=== PATIENT | male | born 1985 | race Caucasian/White ===

== ENCOUNTER 2018-11-10 07:23 | Observation (INO) | payer OTHER, MEDICAID ==
[~2018-11-10] VITALS: Ht 185.4 cm; Wt 131.5 kg
[~2018-11-10 07:23] MED LIST: METO-333 PO
[2018-11-10] MEDS ORDERED: fentaNYL INJECTION 100 MCG/2 ML AMP IVP ONE ×2 (07:45→08:45)
[2018-11-10] MEDS ORDERED: LACTATED RINGERS 1,000 ML IV ONE (07:45)
[2018-11-10] MEDS ORDERED: NS IV 1000 ML 1,000 ML ONE (07:48)
[2018-11-10] MEDS ORDERED: NS IV 1000 ML 1,000 ML IV SCH (07:51)
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
[2018-11-10 07:55] LABS: HEMOGLOBIN 15.6 G/DL (13.3-17.7); MEAN PLATELET VOLUME 11.7 FL (7.4-10.4); RED CELL DISTRIBUTION WIDTH 14.5 % (10.0-14.5); WHITE BLOOD COUNT 16.8 10^3/uL (4.3-11.0)
[2018-11-10] MEDS ORDERED: TETANUS,DIPTH,PERTUSS P/F (BOOSTRIX) 0.5 ML VIAL IM ONE (08:00)
[2018-11-10 08:09] LABS: ALBUMIN 4.6 GM/DL (3.2-4.5); BILIRUBIN,DIRECT 0.2 MG/DL (0.0-0.3); BILIRUBIN,INDIRECT 0.3 MG/DL; BILIRUBIN,TOTAL 0.5 MG/DL (0.1-1.0); CALCIUM 9.6 MG/DL (8.5-10.1); CREATININE SERUM 1.47 MG/DL (0.60-1.30); POTASSIUM 4.3 MMOL/L (3.6-5.0); TOTAL PROTEIN 7.3 GM/DL (6.4-8.2)
[2018-11-10] MEDS ORDERED: ceFAZolin 2 GM/50 ML NS 50 ML IV ONE (08:45)
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
[2018-11-10 09:37] LABS: BILIRUBIN,URINE NEGATIVE (NEGATIVE); CLARITY,URINE SLIGHTLY CLOUDY; COLOR,URINE YELLOW; GLUCOSE, URINE (UA) NEGATIVE (NEGATIVE); KETONES,URINE 2+ (NEGATIVE); LEUKOCYTE ESTERASE ,URINE NEGATIVE (NEGATIVE); NITRITE,URINE NEGATIVE (NEGATIVE); PH,URINE 5 (5-9); PROTEIN,URINE 3+ (NEGATIVE); UROBILINOGEN,URINE NORMAL (NORMAL)
[2018-11-10 09:53] LABS: BACTERIA,URINE TRACE /HPF; RBC,URINE 0-2 /HPF; SQUAMOUS EPITHELIAL CELL,UR 0-2 /HPF
[2018-11-10 10:00] LABS: AMPHETAMINE SCREEN, URINE NEGATIVE (NEGATIVE); BARBITURATE SCREEN URINE NEGATIVE (NEGATIVE); BENZODIAZEPINES SCREEN URINE NEGATIVE (NEGATIVE); CANNABINOID SCREEN, URINE NEGATIVE (NEGATIVE); COCAINE SCREEN URINE NEGATIVE (NEGATIVE); METHADONE STAT NEGATIVE (NEGATIVE); METHAMPHETAMINE SCREEN URINE S NEGATIVE (NEGATIVE); OPIATE SCREEN URINE NEGATIVE (NEGATIVE); OXYCODONE STAT NEGATIVE (NEGATIVE); PROPOXYPHENE STAT NEGATIVE (NEGATIVE); TRICYCLIC ANTIDEPRESSANTS SCRE NEGATIVE (NEGATIVE)
[2018-11-10] MEDS ORDERED: LIDOCAINE 1% INJ 20 ML 20 ML VIAL ONE (10:01)
[2018-11-10] MEDS ORDERED: LIDOCAINE 1% INJ 20 ML 20 ML VIAL INJ ONE (10:15)
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
[2018-11-10] MEDS ORDERED: KETOROLAC 15 MG/ML VIAL IVP PRN (13:15)
[2018-11-10] MEDS: HYDROcodone/APAP 10 MG/325 MG (LORTAB) TAB PO PRN ×2 (13:15→20:19)
[2018-11-10] MEDS ORDERED: ONDANSETRON 4 MG/2 ML (SDV) Z0FRAN IVP PRN (13:15)
[2018-11-10] MEDS: fentaNYL INJECTION 100 MCG/2 ML AMP IVP PRN ×2 (13:15→16:19)
[2018-11-10] MEDS ORDERED: ACETAMINOPHEN 325 MG TABLET PO PRN (13:15)
[2018-11-10] MEDS ORDERED: ANTACID SUSP 30 ML UDC (MYLANTA) PO PRN (13:15)
[2018-11-10 13:17] VITALS: BP 127/65
[2018-11-10 13:26] VITALS: BP 127/65
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
[2018-11-10 16:00] VITALS: BP 131/70
[2018-11-10] MEDS: TRIM/SULFAMETH 160/800 (SEPTRA DS) TAB PO SCH (17:22)
[2018-11-10 19:36] VITALS: BP 138/82
[2018-11-10] MEDS ORDERED: FLUoxetine HCL 20 MG (PROzac) CAP PO SCH (21:00)
[2018-11-10] MEDS ORDERED: GABAPENTIN 600 MG (NEURONTIN) TAB PO SCH (21:00)
[2018-11-10 23:54] VITALS: BP 163/70
[2018-11-11 03:43] VITALS: BP 144/84
[2018-11-11] MEDS: HYDROcodone/APAP 10 MG/325 MG (LORTAB) TAB PO PRN (03:53)
[2018-11-11 06:14] LABS: BASOPHILS % (AUTO) 0 % (0-10); EOSINOPHILS % (AUTO) 0 % (0-10); HEMATOCRIT 39 % (40-54); HEMOGLOBIN 13.8 G/DL (13.3-17.7); LYMPHOCYTES # (AUTO) 1.7 X 10^3 (1.0-4.0); LYMPHOCYTES % (AUTO) 17 % (12-44); MEAN CORPUSCULAR HEMOGLOBIN 32 PG (25-34); MEAN CORPUSCULAR HGB CONC 35 G/DL (32-36); MEAN CORPUSCULAR VOLUME 91 FL (80-99); MEAN PLATELET VOLUME 11.9 FL (7.4-10.4); MONOCYTES # (AUTO) 0.8 X 10^3 (0.0-1.0); MONOCYTES % (AUTO) 8 % (0-12); NEUTROPHILS # (AUTO) 7.7 X 10^3 (1.8-7.8); NEUTROPHILS % (AUTO) 75 % (42-75); PLATELET COUNT 182 10^3/uL (130-400); RED CELL DISTRIBUTION WIDTH 14.1 % (10.0-14.5); WHITE BLOOD COUNT 10.2 10^3/uL (4.3-11.0)
[2018-11-11] MEDS: TRIM/SULFAMETH 160/800 (SEPTRA DS) TAB PO SCH (06:19)
[2018-11-11 06:33] LABS: BUN/CREATININE RATIO 10; CALCIUM 8.9 MG/DL (8.5-10.1); CARBON DIOXIDE 24 MMOL/L (21-32); CHLORIDE 102 MMOL/L (98-107); CREATININE SERUM 1.07 MG/DL (0.60-1.30); GFR ESTIMATED > 60; GLUCOSE 107 MG/DL (70-105); POTASSIUM 3.6 MMOL/L (3.6-5.0); SODIUM 137 MMOL/L (135-145)
[2018-11-11 08:13] VITALS: BP 144/76
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
[2018-11-11] MEDS ORDERED: DOXY25TA50 PO (09:36)
[2018-11-11] MEDS ORDERED: OMEP20TA7 PO (09:36)
--- NOTE | 2018-11-11 10:17 | NUR ---
SPOKE WITH THE PATIENT ABOUT HIS MEDICATIONS. HE LISTED WHAT HE IS TAKING AND STATES HE GETS THEM FILLED AT [facility] OR [facility] IN [place]. HE STATES HE TAKES GABAPENTIN 600MG HS AND FLUOXETINE 20MG HS HOWEVER I CAN NOT FIND WHERE THEY HAVE BEEN FILLED. I CALLED [facility] IN [place] THAT PRESCRIBED THE SHORT TERM MEDS HE HAS FILLED RECENTLY AND THEY STATE THEY HAVE NO RECORD OF PRESCRIBED THE TWO PRESCRIPTION MEDS HE REPORTED. THEY DO NOT HAVE ACCESS TO THE PRESCRIBING RECORDS FROM [facility] BUT HE HAS NOT HAD THEM ORDERED SINCE JUL WHEN THEY TOOK OVER THAT PRACTICE. I DID NOT INCLUDE THEM ON THE MED REC AT THIS TIME SINCE I CAN NOT FIND WHERE THEY HAVE BEEN FILLED. [facility] FILLED TWO SHORT TERM MEDICATIONS IN AUGUST FOR THE PATIENT BUT NOT THE GABAPENTIN AND FLUOXETINE HE REPORTED. [facility] FILLED FLEXERIL AND METHYLPREDNISOLONE IN OCTOBER BUT NEVER THE GABAPENTIN OR FLUOXETINE. HE STATES HE IS TAKING SLEEP AID AND OMEPRAZOLE HS OTC.
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
[2018-11-11] MEDS ORDERED: KETO10TA PO (10:35)
--- NOTE | 2018-11-11 10:37 | Discharge Inst-Surgical ---
Discharge Inst-Surgical Depart Medication/Instructions New, Converted or Re-Newed RX: RX Given to Pt/Family Patient Instructions Follow up Appt: Make appointment with Orthopedic surgery once released from [facility]. Instructions: May shower in 24 hours, no tub bath or soaking. Use incentive spirometer at home as directed. No Smoking Skin/Wound Care: May remove bandages in am. Keep sutures and lacerations clean and dry. Symptoms to Report: Appetite Changes, Extremity Discoloration, Numbness/Tingling, Swelling Increased, Bleeding Excessive, Eyesight Changes, Pain Increased, Urine Color Change, Constipation(Persistent), Fever over 101 degree F, Pain/Pressure in chest, Urinating Difficulty, Cough Up/Vomit Blood, Heart Beat Irreg/Pounding, Pain/Pressure in jaw, Cramps in feet or legs, Lightheadedness, Pain/Pressure in shoulder, Diarrhea(Persistent), Memory Changes Suddenly, Questions/Concerns, Weight gain consecutive days, Dizziness/Fainting, Nausea/Vomiting, Shortness of Breath, Weight gain over 2 pounds If questions or concerns contact your physician Or seek help at emergency department. Activity Activity as Tolerated: Yes Driving Instructions: No Driving/Refer to Dr. Gtz Discharge Diet: No Restrictions Diet After 24 Hours: Clear Liquid if Nauseous If Any Problems/Questions/Issu: Contact Your Physician, Go to Emergency Room Skin/Wound Care Infection Signs and Symptoms: Increased Redness, Foul Odor of Wound, Increased Drainage, Skin Itchy or Has a Rash, Increased Swelling, Temperature Above 101 F Wound Care Comment: Use air cast for right ankle Bathing Instructions: Shower Stitches/Faraz/Dermabond Dis: Care of Stitches DENIS DODGE DO November 11, 2018 10:37
== END 2018-11-11 10:35 ==
LOC: EDUNIT# 07:23 → ER 07:25 → UNDOADMOB 11:10 → 4TH 11:10 → UNDODISOB 11-11 11:00
PROVIDERS: ADMIT Surgery; ATTEND Surgery
DX: S27.321A Contusion of lung, unilateral, initial encounter (principal); S22.42XA Multiple fractures of ribs, left side, initial encounter for closed fracture; S36.522A Contusion of descending [left] colon, initial encounter; S01.21XA Laceration without foreign body of nose, initial encounter; S41.012A Laceration without foreign body of left shoulder, initial encounter; S81.011A Laceration without foreign body, right knee, initial encounter; S93.401A Sprain of unspecified ligament of right ankle, initial encounter; F31.9 Bipolar disorder, unspecified; V87.7XXA Person injured in collision between other specified motor vehicles (traffic), initial encounter; Z79.899 Other long term (current) drug therapy; Z87.891 Personal history of nicotine dependence
CPT/HCPCS: 12002; 12013; 12034; 36415; 70450; 71045; 71260; 72125; 72170; 73030; 73590; 73610; 74022; 74177; 80048; 80076; 80306; 80320; 81000; 85025; 85027; 86850; 86900; 86901; 90471; 90715; 93005; 93041; 96361; 96365; 96375; 96376; G0378

== ENCOUNTER 2019-08-15 19:59 | Outpatient (CLI) | payer MEDICAID, OTHER ==
[~2019-08-15 19:59] MED LIST changes: +DOXY25TA50 PO; +KETO10TA PO; +OMEP20TA7 PO
== END 2019-08-16 06:00 | disposition home or self-care (01) ==
LOC: SLEEP 19:59
PROVIDERS: ATTEND Nurse Practitioner
DX: G47.10 Hypersomnia, unspecified (principal); E29.1 Testicular hypofunction; L70.9 Acne, unspecified; F41.9 Anxiety disorder, unspecified; R40.0 Somnolence
CPT/HCPCS: 95810

== ENCOUNTER → 2019-09-09 | Outpatient (CLI) | payer MEDICAID, OTHER | LOC: LAB FS 09:17 | PROVIDERS: ATTEND Urology | DX: E29.1 Testicular hypofunction (principal); N52.9 Male erectile dysfunction, unspecified | CPT/HCPCS: 36415; 84402; 84403 ==

== ENCOUNTER → 2019-11-07 | Outpatient (CLI) | payer OTHER | LOC: LAB FS 10:34 | PROVIDERS: ATTEND Urology | DX: E29.1 Testicular hypofunction (principal) | CPT/HCPCS: 36415; 84402; 84403 ==

== ENCOUNTER → 2020-01-27 | Outpatient (CLI) | payer OTHER ==
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
--- NOTE | 2020-01-27 18:43 | Diagnostic Imaging Report ---
INDICATION: Nausea and constipation EXAM: Abdominal film obtained at 05:24 p.m. There is prominent stool throughout the colon compatible with history of constipation. There is no significant small bowel dilatation. There is a nonspecific calcification in the right lower quadrant which was not present on 11/11/2018. IMPRESSION: Unremarkable bowel gas pattern with no sign of obstruction or ileus. There is prominent stool throughout the colon. Calcification over the right lower quadrant is present which is nonspecific and was not seen on 11/11/2018. Dictated by: Dictated on workstation # [id number]
== END ==
LOC: RAD FS 17:08
PROVIDERS: ATTEND Nurse Practitioner
DX: R11.2 Nausea with vomiting, unspecified (principal); K59.00 Constipation, unspecified; K44.9 Diaphragmatic hernia without obstruction or gangrene; K29.60 Other gastritis without bleeding
CPT/HCPCS: 71046; 74018

== ENCOUNTER 2020-02-19 14:06 | Outpatient (RCR) | payer OTHER ==
[~2020-02-19] VITALS: Ht 182 cm; Wt 115.9 kg
[~2020-02-19 14:06] MED LIST changes: +DOXY50TA9 PO; +FLUO20CA42 PO; +GBPN600T PO
[2020-02-25] MEDS ORDERED: HYDR-4226 PO (10:32)
== END 2020-02-23 11:06 | disposition home or self-care (01) ==
LOC: PREOP 14:06
PROVIDERS: ATTEND Surgery
DX: Z01.818 Encounter for other preprocedural examination (principal)

== ENCOUNTER → 2020-02-23 | Outpatient (CLI) | payer OTHER ==
[~2020-02-23] MED LIST changes: +HYDR-4226 PO
== END ==
LOC: LAB FS 10:06
PROVIDERS: ATTEND Surgery
DX: Z01.818 Encounter for other preprocedural examination (principal); Z01.812 Encounter for preprocedural laboratory examination; K42.9 Umbilical hernia without obstruction or gangrene; Z20.828 Contact with and (suspected) exposure to other viral communicable diseases
CPT/HCPCS: 87635

== ENCOUNTER → 2020-07-12 | Outpatient (CLI) | payer OTHER | LOC: LAB FS 09:52 | PROVIDERS: ATTEND Urology | DX: E29.1 Testicular hypofunction (principal) | CPT/HCPCS: 36415; 84403 ==

== ENCOUNTER 2020-11-06 10:02 | Emergency (ER) | payer OTHER ==
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
[2020-11-06] MEDS ORDERED: IBUP-1780 PO (12:02)
[2020-11-06] MEDS ORDERED: BACL10TA PO (12:02)
[2020-11-06 12:11] VITALS: BP 132/69
== END 2020-11-06 12:11 | disposition home or self-care (01) ==
LOC: EDUNIT# 10:02 → ER FS 10:04
DX: S92.151A Displaced avulsion fracture (chip fracture) of right talus, initial encounter for closed fracture (principal); S39.012A Strain of muscle, fascia and tendon of lower back, initial encounter; I10 Essential (primary) hypertension; K21.9 Gastro-esophageal reflux disease without esophagitis; F41.9 Anxiety disorder, unspecified; G47.30 Sleep apnea, unspecified; F17.210 Nicotine dependence, cigarettes, uncomplicated; Z99.89 Dependence on other enabling machines and devices; V89.2XXA Person injured in unspecified motor-vehicle accident, traffic, initial encounter; Y92.411 Interstate highway as the place of occurrence of the external cause
CPT/HCPCS: 72100; 73610

== ENCOUNTER → 2021-03-01 | Outpatient (CLI) | payer OTHER ==
[~2021-03-01] MED LIST changes: +BACL10TA PO; +IBUP-1780 PO
[2021-03-01 15:12] LABS: HEMATOCRIT 46 % (40-54); HEMOGLOBIN 16.2 g/dL (13.3-17.7); MEAN CORPUSCULAR HEMOGLOBIN 31 pg (25-34); MEAN CORPUSCULAR HGB CONC 35 g/dL (32-36); MEAN CORPUSCULAR VOLUME 88 fL (80-99); MEAN PLATELET VOLUME 11.3 fL (9.0-12.2); PLATELET COUNT 234 10^3/uL (130-400)
[2021-03-01 15:59] LABS: SODIUM 141 MMOL/L (135-145)
[2021-03-01 16:00] LABS: ALANINE AMINOTRANSFERASE 35 U/L (0-55); ALBUMIN 4.6 GM/DL (3.2-4.5); ALKALINE PHOSPHATASE 77 U/L (40-136); BILIRUBIN,DIRECT < 0.2 MG/DL (0.0-0.3); BILIRUBIN,TOTAL 0.2 MG/DL (0.1-1.0); BUN/CREATININE RATIO 11; CALCIUM 9.3 MG/DL (8.5-10.1); CARBON DIOXIDE 28 MMOL/L (21-32); CHLORIDE 103 MMOL/L (98-107); CREATININE SERUM 1.16 MG/DL (0.60-1.30); GFR ESTIMATED 71; GLUCOSE 89 MG/DL (70-105); POTASSIUM 3.8 MMOL/L (3.6-5.0); TOTAL PROTEIN 7.1 GM/DL (6.4-8.2)
[2021-03-02 15:00] LABS: CHOLESTEROL 196 MG/DL (< 200); HDL CHOLESTEROL 51 MG/DL (40-60); TRIGLYCERIDES 162 MG/DL (<150); VLDL CHOLESTEROL 32 MG/DL (5-40)
== END ==
LOC: LAB FS 14:08
PROVIDERS: ATTEND Urology
DX: E29.1 Testicular hypofunction (principal); N40.0 Benign prostatic hyperplasia without lower urinary tract symptoms
CPT/HCPCS: 36415; 80048; 80061; 80076; 84153; 84403; 85027

== ENCOUNTER → 2022-06-27 | Outpatient (CLI) | payer BC, OTHER ==
[~2022-06-27] MED LIST changes: +DOXY50TA16 PO; -DOXY50TA9 PO; +OMEP20TA56 PO; -OMEP20TA7 PO
--- NOTE | 2022-06-27 15:14 | Diagnostic Imaging Report ---
INDICATION: Abdominal pain PROCEDURE: Ultrasound abdomen complete. TECHNIQUE: Multiple real-time grayscale images were obtained of the abdomen in various projections. Liver parenchyma is homogeneous with normal echotexture. Portal vein is patent with hepatopetal flow. The gallbladder is clear with no stones or wall thickening. The common duct is not dilated. The pancreas is normal. Spleen measures 11.2 cm in length. Aorta and IVC are normal. Right kidney measures 12.2 cm in length. The left kidney measures 9.8 cm in length. There is no ascites. Periumbilical area was unremarkable. IMPRESSION: Ptotic left kidney. Dictated by: Dictated on workstation # [id number]
== END ==
LOC: RAD FS 08:55
PROVIDERS: ATTEND Allergy & Immunology
DX: N28.83 Nephroptosis (principal)
CPT/HCPCS: 76700